=== PATIENT | male | born 1955 | race Caucasian/White ===

== ENCOUNTER 2018-04-01 16:47 | Observation (INO) | payer OTHER ==
[~2018-04-01] VITALS: Ht 177.8 cm; Wt 81.6 kg
--- NOTE | ~2018-04-01 | MORECARE ---
CASE MANAGEMENT DISCHARGE SUMMARY PATIENT: MARIPOSA GARCIA UNIT: [id number] ADM DATE: 04/01/18 AGE: 62 : 53 SEX: M ROOM/BED: D.2115 AUTHOR: GIANA JIMENEZ PHYSICIAN: REFERRING PHYSICIAN: SANDRO DELATORRE MD DATE OF SERVICE: 04/04/18 Discharge Plan Patient Name: MARIPOSA GARCIA [facility] [facility] 1955 Planned Disposition: Home Anticipated Discharge Date: 04/02/18 Discharge Date: 04/02/2018 Expected LOS: 1 Initial Reviewer: [email or web address] Initial Review Date: 04/04/2018 Generated: 04/04/18 12:19 pm Patient Name: MARIPOSA GARCIA Page [id number] at 1119 All edits/amendments must be made on the electronic document DICTATION DATE: 04/04/181117 LODGE ATTENDANT: CLOVIS 04/04/18 111 RPT#: [id number] DC DATE:04/02/18 STATUS: DIS IN [facility] [address] [place] [address] END OF REPORT
--- NOTE | ~2018-04-01 | HP ---
PATIENT: MARIPOSA GARCIA MEDICAL RECORD: [id number] ACCOUNT: [id number] LOCATION:[address] : [birth year] ADMISSION DATE: 04/01/18 PCP: No PCP HISTORY AND PHYSICAL EXAMINATION HISTORY OF PRESENT ILLNESS: A 62-year-old gentleman with past history remarkable for apparently sudden cardiac workup by his report. He has history of hypertension, hyperlipidemia, not on medicines. Onset yesterday of dizziness, chest tightness, pressure, nausea, found to have inferior NC, received thrombolytics, transferred here from [place] for further evaluation. Recently, he has been feeling quite well without any other type of symptomatology. This was abrupt onset. PAST MEDICAL HISTORY: History of hypertension, hyperlipidemia. ALLERGIES: IODINE, TRAZODONE, AND PENICILLIN. SOCIAL HISTORY: Lives in [place]. Does smoke less than a pack a day. No alcohol use. No set exercise program. MEDICATIONS: Include Mobic 7.5 every day, Flexeril 30 mg p.o. daily, Neurontin 100 p.o. t.i.d., atenolol 25 every day, Prinivil 5 every day. REVIEW OF SYSTEMS: The patient reports easy bruising but reports no swollen glands. The patient reports no fever, no night sweats, no significant weight gain, no significant weight loss. No significant exercise tolerance. The patient reports no dry eyes, no irritation, no vision change. Patient reports no difficulty hearing and no ear pain. Patient reports no frequent nose bleeds or nose and sinus problems. Patient reports on arm pain on exertion. No shortness of breath while lying down. No history of heart murmur. Patient reports no cough, no wheezing or coughing up blood. Patient reports no abdominal pain, no vomiting. Normal appetite. No diarrhea and not vomiting blood. No nausea and no constipation. Patient reports no incontinence. No difficulty urinating. No hematuria. No increased frequency. Patient reports no muscle aches. No weakness, no arthralgias, no back pain. No swelling of the extremities. Patient reports no abnormal mole, no jaundice, no rashes. Reports no loss of consciousness. No weakness and no numbness. No seizures, dizziness, or headaches. The patient reports no depression, no sleep disturbance, feeling safe in a relationship and no alcohol abuse. Patient reports on fatigue. Reports no runny nose or sinus pressure. No itching, no hives, and no frequent sneezing. PHYSICAL EXAMINATION: GENERAL: Pleasant gentleman in no acute distress, appears stated age. VITAL SIGNS: Blood pressure 90/50, pulse 65 and regular. HEENT: Normocephalic, atraumatic. NECK: No JVD or bruit. HEART: Regular. LUNGS: Raza are clear. ABDOMEN: Soft, nontender. EXTREMITIES: Pulses are 2+. There is no edema. NEUROLOGIC: Grossly intact. IMPRESSION: Inferior myocardial infarction. HISTORY AND PHYSICAL [id number] MARIPOSA GARCIA PLAN: For angiography, intervention based on above. TRANSINT:[id number] Voice Confirmation ID: [id number] DOCUMENT ID: [id number] SANDRO DELATORRE MD CC: [id number] DICTATION DATE: 04/02/18851 SUTURE GAUGER: 04/02/18 112 ADM IN [facility] [address] [place] [address]
--- NOTE | ~2018-04-01 | HEMODYNAMI ---
PATIENT:MARIPOSA GARCIA MEDICAL RECORD: [id number] : 51 LOCATION:[facility] D.[address] [id number] ADMISSION DATE: 04/01/18 Generatedon:04/02/201810:11 Patient name: MARIPOSA GARCIA Patient #: [id number] SSN: : Date of study: 04/02/2018 Page: Of Hemodynamic Procedure Report Patient Data Patient Demographics Procedure consent was obtained First Name: MARIPOSA Gender: Male Last Name: JOSE : 1955 [facility] Initial: W Age: 62 year(s) Patient #: [id number] Race: Unknown Ethnicity: or Additional ID: [id number] Contact details [address]: [address] [place] [address] State: [place] City: [place] Zip code: [address] Past Medical History Allergies Allergen Reaction Date Comments Reported Other allergy 04/02/2018 iodine, pcn, trazodone Admission Admission Data Admission Date: 04/01/2018 Admission Time: 17:53 Admit Source: Other Room #: D.2115 Lab Results Lab Result Date: 04/02/2018 Lab Result Time: 6:00 Biochemistry Name Units Result Min Max BUN mg/dl 12 --(-*--)-- 7 18 Creatinine mg/dl 1.3 --(---*)-- 0.6 1.3 Troponin l ng/ml 34.033 --(----)-* 0 0.06 CBC Name Units Result Min Max Hematocrit % 41.6 -*(----)-- 42 54 Hemoglobin g/dl 14.2 --(*---)-- 13.5 17.5 Procedure Procedure Types Cath Procedure Diagnostic Procedure [facility] w/Coronaries Sedation Charges Moderate Sedation up to 15 minutes PCI Procedure Coronary Stent Coronary Stent Initial Procedure Description Procedure Date Procedure Date: 04/02/2018 Procedure Start Time: 9:48 Procedure End Time: 10:08 Procedure Staff Name Function Keyshawn Guthrie MD Performing Physician Kory Melendez RT Monitor Fidelia Gaines RT Scrub Kinjal Medrano RN Nurse Procedure Data Cath Procedure Fluoroscopy Diagnostic fluoroscopy Total fluoroscopy Time: 2.8 time: 2.8 min min Diagnostic fluoroscopy Total fluoroscopy dose: 401 dose: 401 mGy mGy Contrast Material Contrast Material Type Amount (ml) Isovue 300 69 Entry Location Entry Primary Successful Side Size Upsize Upsize Entry Closure Succes sful Closure Location (Fr) 1 (Fr) 2 (Fr) Remarks Device Remarks Femoral Right 5 Fr 6 Fr Exoseal artery Short Estimated blood loss: 10 ml Diagnostic catheters Device Type Used For End Catheter Placement MULTIPACK JL 4.0 5Fr Procedure catheter MULTIPACK 3DRC 5Fr Procedure catheter MULTIPACK Pigtail 5 Fr Procedure catheter Procedure Complications No complications Procedure Medications Medication Administration Route Dosage 0.9% NaCl I.V. 100 ml/hr Oxygen etCO2 Nasal cannula 2 l/min Lidocaine 2% added to field 20 Heparin Flush Bag added to field 2 bags (1000units/500ml NS) Versed I.V. 2 mg Fentanyl I.V. 100 mcg Versed I.V. 2 mg Fentanyl I.V. 100 mcg Heparin Bolus I.V. 5000 units Integrilin (Bolus I.V. 7.3 ml 2mg/ml) Plavix P.O. 600 mg Versed I.V. 2 mg Versed I.V. 2 mg Hemodynamics Rest HGB: 14.2 (g/dl) Heart Rate: 62 (bpm) Pressure Samples Time Site Value (mmHg) Purpose Heart Use Rate(bpm) 9:53 LV 107/11,16 Snapshot 77 9:54 AO 104/59(78) Pullback 76 9:54 LV 103/13,21 Pullback 76 Gradients Valve Time Site 1 Site 2 Mean SEP/DFP Peak To Heart Use (mmHg) (sec/min) Peak Rate (mmHg) (bpm) Aortic 9:54 LV AO 0 12 0 76 103/13,21 104/59(78) Calculations Valve P-P Mean Valve Index Valve Source Name Gradient Area Flow (cm2) Aortic 0 0 0 0 Snapshots Pre Cath Intra NCS Post Cath Vital Signs Time Heart Resp SPO2 etCO2 NIBP (mmHg) Rhythm Pain Sedation Rate (ipm) (%) (mmHg) Status Level (bpm) 9:32:34 60 12 99 34.4 125/75(114) NSR 0 (11) 10(A) , No pain 9:36:45 60 13 100 25.4 130/76(111) NSR 0 (11) 10(A) , No pain 9:41:01 58 15 100 27.7 136/70(106) NSR 0 (11) 10(A) , No pain 9:45:17 66 15 100 35.2 120/67(104) NSR 0 (11) 10(A) , No pain 9:49:25 68 17 100 26.9 114/67(88) NSR 0 (11) 10(A) , No pain 9:53:37 76 15 98 30.7 114/67(89) NSR 0 (11) 10(A) , No pain 9:57:53 73 13 97 37.4 102/59(90) NSR 0 (11) 9(A) , No pain 10:02:03 78 11 99 30 101/59(81) NSR 0 (11) 10(A) , No pain 10:06:13 72 12 98 37.4 111/64(90) NSR 0 (11) 10(A) , No pain Medications Time Medication Route Dose Verified Delivered Reason Notes Effectiveness by by 9:45:20 0.9% NaCl I.V. 100 Keyshawn Kinjal used for ml/hr [place] [facility] procedure MD [place] 9:45:27 Oxygen etCO2 2 Keyshawn Kinjal used for Nasal l/min [facility] procedure cannula MD [place] 9:45:32 Lidocaine 2% added 20ml Keyshawn Keyshawn for local to vial [facility] anesthetic field MD [place] 9:45:41 Heparin Flush added 2 Keyshawn Keyshawn used for Bag to bags [facility] procedure (1000units/500ml field MD [place] NS) 9:46:05 Versed I.V. 2 mg Keyshawn Kinjal for sedation [facility] Larry Medrano MD, RN 9:46:16 Fentanyl I.V. 100 Keyshawn Kinjal for sedation mcg [facility] Larry Medrano MD, RN 9:51:14 Versed I.V. 2 mg Keyshawn Kinjal for sedation [facility] Larry Medrano MD, RN 9:51:21 Fentanyl I.V. 100 Keyshawn Kinjal for sedation [facility] Medrano MD, RN 9:54:35 Heparin Bolus I.V. 5000 Keyshawn Kinjal for verifi ed units [facility] anticoagulation with Dr. MD STANISLAV Pendleton 9:56:20 Versed I.V. 2 mg Keyshawn Layton for sedation [facility] Larry Medrano MD, RN 9:56:35 Integrilin I.V. 7.3 Keyshawn Arechigaa for wasted (Bolus 2mg/ml) ml [facility] Larry Medrano anticoagulation 2.7mL MD [place] 9:56:50 Plavix P.O. 600 Keyshawn Layton for mg [facility] Larry Medrano antiplatelet RN therapy 9:56:53 Versed I.V. 2 mg Kesyhawn Arechigaa for sedation [facility] Larry Medrano MD, RN Procedure Log Time Note 9:25:57 Fidelia Gaines RT(R) sent for patient. Start room use. 9:31:30 Vital chart was started 9:35:37 Informed consent obtained and on chart 9:35:40 Admit Source: Other 9:35:53 Diagnostic Cath status Elective 9:36:05 Time tracking: Call back (After hours or weekends) 9:36:15 Plan of Care:Hemodynamics will remain stable., Cardiac rhythm will remain stable., Comfort level will be maintained., Respiratory function will remain adequate., Patient/ family verbilizes understanding of procedure., Procedure tolerated without complication., Recovers from procedure without complications.. 9:36:21 Patient received from Med II to CCL 1 Alert and oriented. Tansferred to table in Supine position. 9:36:23 Warm blankets applied, and grzegorz hugger turned on for patient comfort. 9:36:23 Correct patient and procedure confirmed by team. 9:36:23 ECG and BP/O2 sat monitors applied to patient. 9:36:25 Baseline sample Acquired. 9:36:28 Rhythm: sinus rhythm 9:36:30 Full Disclosure recording started 9:36:35 H&P Date Dictated: 04/01/2018 Within 30 days and on chart.. 9:36:36 Pre-procedure instructions explained to patient. 9:36:36 Pre-op teaching completed and patient verbalized understanding. 9:36:42 Family unavailable. 9:36:43 Patient NPO since Midnight. 9:40:22 Quick Combo opened to sterile field. 9:40:33 Quick combo pads placed on patients chest and back. 9:40:41 Patient allergic to Other allergyiodine, pcn, trazodone 9:40:45 Is the patient allergic to Iodine/contrast media? Yes. 9:40:46 Was the patient premedicated? Yes 9:40:47 Is patient on blood thinner?No 9:40:52 Patient diabetic? No. 9:40:55 Previous problem with sedation/anesthesia? No ? 9:40:57 Snore? Yes 9:40:58 Sleep apnea? No 9:40:59 Deviated septum? No 9:40:59 Opens mouth fully? Yes 9:41:00 Sticks out tongue? Yes 9:41:03 Airway obstruction? No ? 9:41:07 Dentures? Yes in tight 9:41:10 Pre procedure: right dorsailis pedis pulse 2+ Normal; easily identifiable; not easily obliterated 9:41:12 Patient pain scale 0/10 ?. 9:41:35 IV patent on arrival in right antecubital with 0.9% NaCl at O. 9:43:01 Lab Result : BUN 12 mg/dl 9:43:01 Lab Result : Creatinine 1.3 mg/dl 9:43:01 Lab Result : Troponin l 34.033 ng/ml 9:43:01 Lab Result : Hemoglobin 14.2 g/dl 9:43:01 Lab Result : Hematocrit 41.6 % 9:43:04 Lab results completed and on chart. 9:43:06 Right groin area was prepped with chlora-prep and draped in sterile fashion 9:43:07 Alarms reviewed by R. N. 9:43:07 Sharps counted by scrub and verified by R.N. 9:43:09 Use device set Femoral Dx 9:43:10 ACIST Syringe (73639) opened to sterile field. 9:43:11 Bag Decanter (2002) opened to sterile field. 9:43:11 Medline Cath Pack ([id number]) opened to sterile field. 9:43:12 DIAGNOSTIC WIRE .035 260cm J wire (233620) opened to sterile field. 9:43:13 DIAGNOSTIC Multipack 5Fr catheter set ([id number]) opened to sterile field. 9:43:14 ACIST Hand Control (55881) opened to sterile field. 9:43:15 ACIST Manifold (36828) opened to sterile field. 9:43:15 Tegaderm 4 x 4 (1626W) opened to sterile field. 9:43:17 SHEATH 5FR [place] (TOS266) opened to sterile field. 9:43:23 Physician arrived 9:43:24 --------ALL STOP TIME OUT------ 9:43:24 Final Timeout: patient, procedure, and site verified with staff and physician. All members of the team are in agreement. 9:43:26 Right groin site verified by team. 9:43:29 Physical assessment completed. ASA score P 3 - A patient with severe systemic disease as per Keyshawn Guthrie MD. 9:43:31 Sedation plan: IV Moderate Sedation Medication:Versed, Fentanyl 9:45:20 0.9% NaCl 100 ml/hr I.V. was administered by Kinjal Medrano RN; used for procedure; 9:45:27 Oxygen 2 l/min etCO2 Nasal cannula was administered by Kinjal Medrano RN; used for procedure; 9:45:32 Lidocaine 2% 20ml vial added to field was administered by Keyshawn Guthrie MD; for local anesthetic; 9:45:41 Heparin Flush Bag (1000units/500ml NS) 2 bags added to field was administered by Keyshawn Guthrie MD; used for procedure; 9:46:05 Versed 2 mg I.V. was administered by Kinjal Medrano RN; for sedation; 9:46:16 Fentanyl 100 mcg I.V. was administered by Kinjal Medrano RN; for sedation; 9:48:09 Zero performed for pressure channel P1 9:48:18 Procedure started. 9:48:22 Local anesthetic to right femoral artery with Lidocaine 2% by Keyshawn Guthrie MD.INITIAL ACCESS ONLY 9:48:29 A 5 Fr sheath was inserted into the Right Femoral artery 9:49:15 A MULTIPACK JL 4.0 5Fr catheter was advanced over the wire and used for Procedure. 9:50:06 LCA angiography performed. 9:51:14 Versed 2 mg I.V. was administered by Kinjal Medrano RN; for sedation; 9:51:21 Fentanyl 100 mcg I.V. was administered by Kinjal Medrano RN; for sedation; 9:51:54 Catheter exchanged over wire. 9:52:00 A MULTIPACK 3DRC 5Fr catheter was advanced over the wire and used for Procedure. 9:52:33 RCA angiography performed. 9:52:38 A MULTIPACK Pigtail 5 Fr catheter was advanced over the wire and used for Procedure. 9:53:53 LV gram done using LICEA 9::55 Injector settings: Ml/sec: 10, Volume: 20, 9:53:56 LV hemodynamics recorded. 9:54:00 EF : 45 % 9:54:35 Heparin Bolus 5000 units I.V. was administered by Kinjal Medrano RN; for anticoagulation; verified with Dr. Pendleton 9:55:04 Catheter removed. 9:55:21 SHEATH 6FR [place] (NYX263) opened to sterile field. 9:55:21 GUIDE 6FR AR 1.0 catheter ([id number]) opened to sterile field. 9:55:22 WHISPER 300cm guide wire ([id number]) opened to sterile field. 9:55:22 INFLATOR Merit BasixCompak (LF8726) opened to sterile field. 9:55:27 EXOSEAL 6Fr (EX600) opened to sterile field. 9:55:36 Sheath upsized to a 6 Fr Short. 9:55:42 6 Fr AR 1 guide catheter was inserted over the wire 9:55:51 WHISPER wire advanced. 9:56:20 Versed 2 mg I.V. was administered by Kinjal Medrano RN; for sedation; 9:56:35 Integrilin (Bolus 2mg/ml) 7.3 ml I.V. was administered by Kinjal Medrano RN; for anticoagulation; wasted 2.7mL 9:56:50 Plavix 600 mg P.O. was administered by Kinjal Medrano RN; for antiplatelet therapy; 9:56:53 Versed 2 mg I.V. was administered by Kinjal Medrano RN; for sedation; 9:59:04 Place stent Inflation Number: 1 A JEREMIAH OTW 3.0 x 12 stent ([id number]) was prepped and advanced across the Dist RCA. The stent was deployed at 14 JEFF for 0:30 (min:sec). 9:59:41 Stent catheter was removed intact over wire. 9:59:46 Wire removed. 9:59:48 Guide catheter removed. 9:59:57 Sheath removed intact; hemostasis achieved with Exoseal to the Right Femoral artery. :59:59 Procedure ended.(Physican Out) 10:05:54 Fluoroscopy time 02.80 minutes. 10:05:59 Fluoroscopy dose: 401 mGy 10:05:59 Flurop Dose total: 401 10:06:03 Contrast amount:Isovue 300 69ml. 10:06:05 Sharps counted by scrub and verified by R.N. 10:06:09 Insertion/operative site no bleeding no hematoma. 10:06:14 Post-op/insertion site Right Femoral artery dressed using a 4 x 4 and Tegaderm. 10:06:19 Post right femoral artery:stable, soft, clean and dry 10:06:20 Post Procedure Pulses reassessed and unchanged 10:06:23 Post-procedure physical assessment completed. ASA score P 3 - A patient with severe systemic disease as per Keyshawn Guthrie MD. 10:06:25 Post procedure rhythm: unchanged. 10:06:27 Estimated blood loss: 10 ml 10:06:28 Post procedure instruction explained to patient.Patient verbalizes understanding. 10:06:28 Patient needs reinforcement of post procedure teaching. 10:06:34 Procedure type changed to Cath procedure, Diagnostic procedure, LHC, LHC w/Coronaries, Sedation Charges, Moderate Sedation up to 15 minutes, PCI procedure, Coronary Stent, Coronary Stent Initial 10:07:54 Procedure and supply charges have been captured, reviewed, submitted and are correct. 10:07:56 Procedure Complication : No complications 10:07:58 Vital chart was stopped 10:07:59 See physician's report for complete and final results. 10:08:01 Report given to PCU. 10:08:04 Patient transfered to PCU with Stretcher. 10:08:05 Procedure ended. 10:08:05 Full Disclosure recording stopped 10:08:09 End room use (Document Last) Intervention Summary Intervention Notes Time ActionType Lesion and Equipment Action# Pressure Duration Attributes Used 9:59:04 Place stent Dist RCA JEREMIAH OTW 3.0 1 14 00:30 x 12 stent ([id number]) Device Usage Item Name Manufacture Quantity Catalog Hospital Part Current Mini mal Lot# / Number Charge Number Stock Stock Serial# Code ACIST Syringe Acist 1 35952 778096 008625 554192 20 (85727) Medical Systems Inc Bag Decanter Microtek 1 [id number] 12101 129907 5 () Medical Inc. Medline Cath Medline 1 [id number] 346134 49493 303359 5 Pack ([id number]) DIAGNOSTIC St Niall 1 324002 188708 956345 638679 30 WIRE .035 260cm J wire (837525) DIAGNOSTIC Cardinal 1 MU5647 474262 53277 642936 30 Multipack 5Fr Health catheter set (QU3345) ACIST Hand Acist 1 54376 802317 668007 099923 5 Control Medical (34296) Systems Inc ACIST Acist 1 54448 300136 470216 373683 5 Manifold Medical (81414) Systems Inc Tegaderm 4 x 3M 1 1626W 612103 704541 194062 5 4 (1626W) SHEATH 5FR Terumo 1 CJY917 623162 815132 149121 5 [place] (BWS726) MULTIPACK JL Cardinal 1 313499 5 4.0 5Fr Health catheter MULTIPACK Cardinal 1 329672 5 3DRC 5Fr Health catheter MULTIPACK Cardinal 1 584406 5 Pigtail 5 Fr Health catheter SHEATH 6FR Terumo 1 NES897 123632 500740 441950 40 [place] (NGM848) GUIDE 6FR AR Medtronic 1 [id number] 358536 98201 377061 1 1.0 catheter (CS6RI30) WHISPER 300cm Hernandez 1 [id number] 716666 994577 110252 5 guide wire Vascular ([id number]) INFLATOR [facility] 1 EJ0025 704418 832342 914466 15 [facility] BasixCompak (II6609) EXOSEAL 6Fr Cardinal 1 EX600 867642 321317 605668 10 (EX600) Health JEREMIAH OTW 3.0 Medtronic 1 [id number] 857029 417579 288854 5 [id number] x 12 stent ([id number]) Cinchcast 1 67188-791991 540546 112829 630318 5 Signature Audit [place] Stage Time Signature Unsigned Intra-Procedure 04/02/2018 Kory Melendez 10:11:10 AM RT(R) Signatures Monitor : Kory Melendez RT Signature : Date : Time : [facility] [address] [place] [address]
--- NOTE | ~2018-04-01 | OP ---
PATIENT NAME: MARIPOSA GARCIA MEDICAL RECORD: [id number] :51 LOCATION:D. D.2115 ADMISSION DATE:04/01/18 SURGEON: SANDRO DELATORRE MD DATE OF OPERATION: 04/02/2018 PROCEDURE: Left heart catheterization, selective coronary angiography, right femoral artery approach. CATHETERS USED: A 5-Kenyan sheath, 5/4 left and right Abhishek, 5/4 pig. The procedure was well tolerated. The patient returned to price, sheath removed. ExoSeal device placed. FINDINGS: Left ventriculography in 30-degree LICEA view shows inferior inferobasilar hypokinesis. Overall function is mildly reduced at 40% to 45%. CORONARY ANATOMY: LEFT MAIN: Left main is free of disease. LAD: Free of disease in the diagonal system. CIRCUMFLEX: Free of disease in the marginal system. RIGHT CORONARY ARTERY: Dominant artery, gives rise to PDA and before the takeoff of the PD has about 80% stenosis obviously infarct related artery. DESCRIPTION OF PROCEDURE: A 5-Kenyan sheath was exchanged for a 6-Kenyan sheath. AR1 guiding catheter provided good guide catheter support followed by 300 cm Whisper wire was placed across the tightly occluded right coronary down this portion of vessel. Stent deployed was a 3.0 x 12-mm Derrick drug-eluting stent up to 14 atmospheres for 45 seconds. Final angiography shows excellent resolution of 80% stenosis, no significant residual. JAMEEL flow was 3 throughout the procedure. Heparin and Integrilin were used during the case. Sheath closed with ExoSeal device. Plavix was loaded in the lab. TRANSINT:[id number] Voice Confirmation ID: [id number] DOCUMENT ID: [id number] SANDRO DELATORRE MD CC: [id number] DICTATION DATE: 04/02/18 1011 [employer] CLERK: 04/02/18 1640 ADM IN [place] [address] [place] [address]
[2018-04-01] MEDS ORDERED: MOBIC7.5 MG PO (16:58)
[2018-04-01] MEDS ORDERED: AMRIX30 MG PO (16:58)
[2018-04-01] MEDS ORDERED: GABAPENTIN100 MG PO (16:58)
[2018-04-01] MEDS ORDERED: PRINIVIL10 MG PO (16:59)
[2018-04-01] MEDS ORDERED: KLONOPIN0.5 MG PO (16:59)
[2018-04-01] MEDS ORDERED: TENORMIN25 MG PO (16:59)
[2018-04-01 17:55] VITALS: BP 109/58
[2018-04-01 17:59] LABS: HEMATOCRIT 41.6 % (42.0-54.0); HEMOGLOBIN 14.2 g/dL (13.5-17.5); MCH 33.8 pg (26.0-34.0); MCHC 34.1 g/dL (31.0-37.0); MEAN PLATELET VOLUME 10.5 fL (7.4-10.4); RBC 4.2 10x6/uL (4.20-6.10); RDW 13.7 % (11.5-14.5); WBC 12.5 10x3/uL (4.8-10.8)
[2018-04-01 18:03] LABS: INR 1.11 (0.85-1.17); PROTIME 13.8 SECONDS (11.6-15.0)
[2018-04-01 18:04] LABS: APTT 98.7 SECONDS (22.8-39.4)
[2018-04-01 23:02] VITALS: BP 110/55; BMI 25.8
[2018-04-01 23:55] VITALS: BP 96/62
[2018-04-02 03:45] VITALS: BP 93/50
[2018-04-02 08:10] VITALS: Ht 177.8 cm; Wt 81.6 kg
[2018-04-02 08:46] VITALS: BP 89/50
[2018-04-02 09:09] LABS: ANION GAP 15.7 mmol/L (8-16); CALCIUM 8.9 mg/dL (8.5-10.1); CARBON DIOXIDE 23.7 mmol/L (21.0-32.0); CREATININE - SERUM 1.3 mg/dL (0.6-1.3); POTASSIUM - SERUM 4.4 mmol/L (3.5-5.1)
[2018-04-02 11:05] LABS: BASOPHILS 0.2 % (0-2); HEMATOCRIT 42.5 % (42.0-54.0); HEMOGLOBIN 14.7 g/dL (13.5-17.5); IMMATURE GRANULOCYTES 0.1 % (0-5); LYMPHOCYTES 14.5 % (15-50); MCH 34.2 pg (26.0-34.0); MCHC 34.6 g/dL (31.0-37.0); MCV 98.8 fL (80.0-100.0); MEAN PLATELET VOLUME 11.6 fL (7.4-10.4); MONOCYTES 2.3 % (2-11); NEUTROPHILS 81.9 % (40-80); PLATELET COUNT 197 10x3/uL (130-400); RDW 14.1 % (11.5-14.5); WBC 9.7 10x3/uL (4.8-10.8)
[2018-04-02] MEDS ORDERED: PLAVIX75 MG PO (12:48)
[2018-04-02] MEDS ORDERED: LIPITOR20 MG PO (12:49)
[2018-04-02 14:51] VITALS: BP 114/65
== END 2018-04-02 15:15 | disposition home or self-care (01) ==
LOC: D.ER 16:47 → D.EDHOLD 17:53 → EDBD 17:53 → OBSVTIME 17:53 → D.M2 18:56 → D.SDCHOLD 18:59 → D.M2 19:00
PROVIDERS: Family Medicine; Internal Medicine Interventional Cardiology
DX: I21.19 ST elevation (STEMI) myocardial infarction involving other coronary artery of inferior wall (principal); I25.10 Atherosclerotic heart disease of native coronary artery without angina pectoris; I10 Essential (primary) hypertension; E78.5 Hyperlipidemia, unspecified; Z72.0 Tobacco use